=== PATIENT | female | born 1975 | race Caucasian/White ===

== ENCOUNTER 2021-12-20 08:25 | Outpatient (CLI) | payer BC, OTHER | END 2021-12-20 08:26 | disposition home or self-care (01) | LOC: RAD 08:25 | PROVIDERS: ATTEND Internal Medicine Critical Care Medicine | DX: R06.00 Dyspnea, unspecified (principal) | CPT/HCPCS: 71046 ==

== ENCOUNTER 2022-09-01 18:00 | Outpatient (CLI) | payer BC, OTHER | END 2022-09-01 18:01 | disposition home or self-care (01) | LOC: SLEEPLAB 18:00 | PROVIDERS: ATTEND Internal Medicine Critical Care Medicine | DX: G47.33 Obstructive sleep apnea (adult) (pediatric) (principal); R06.83 Snoring; J45.909 Unspecified asthma, uncomplicated; F41.9 Anxiety disorder, unspecified; F32.9 Major depressive disorder, single episode, unspecified; G47.00 Insomnia, unspecified; K21.9 Gastro-esophageal reflux disease without esophagitis; M79.7 Fibromyalgia; R09.02 Hypoxemia | CPT/HCPCS: 95800 ==

== ENCOUNTER 2023-09-15 09:36 | Day surgery (SDC) | payer BC, OTHER ==
[2023-09-13 16:25] VITALS: BMI 41.8
[2023-09-15] MEDS ORDERED: Lidocaine 1% w/Epinephrine 1:100K 20 ML VIAL ONE (10:06)
[2023-09-15] MEDS ORDERED: Lidocaine 1% (PF) 30 ML VIAL ONE (10:07)
== END 2023-09-15 12:10 | disposition home or self-care (01) ==
LOC: SDC 09:36
PROVIDERS: ATTEND Internal Medicine Cardiovascular Disease
PROC: 0JH632Z Insertion of Monitoring Device into Chest Subcutaneous Tissue and Fascia, Percutaneous Approach (ICD-10-PCS; principal; 2023-09-15)
DX: I47.10 Supraventricular tachycardia, unspecified (principal); G47.33 Obstructive sleep apnea (adult) (pediatric); E66.01 Morbid (severe) obesity due to excess calories; F41.9 Anxiety disorder, unspecified; G43.909 Migraine, unspecified, not intractable, without status migrainosus; G89.4 Chronic pain syndrome; E78.5 Hyperlipidemia, unspecified; E03.9 Hypothyroidism, unspecified; K58.9 Irritable bowel syndrome, unspecified; F32.9 Major depressive disorder, single episode, unspecified; F43.10 Post-traumatic stress disorder, unspecified; R00.2 Palpitations; M35.00 Sjogren syndrome, unspecified; Z79.899 Other long term (current) drug therapy; Z88.1 Allergy status to other antibiotic agents; Z79.82 Long term (current) use of aspirin
CPT/HCPCS: 33285; C1764; J2001

== ENCOUNTER 2024-05-30 13:41 | Outpatient (CLI) | payer BC, OTHER | END 2024-05-30 13:42 | disposition home or self-care (01) | LOC: SCSMRI 13:41 | PROVIDERS: ATTEND Psychiatry & Neurology Neurology | DX: G37.9 Demyelinating disease of central nervous system, unspecified (principal); G93.89 Other specified disorders of brain | CPT/HCPCS: 70553; 72156; 76376 ==

== ENCOUNTER 2024-07-17 09:03 | Day surgery (SDC) | payer BC ==
[2024-07-17] MEDS ORDERED: Sodium Bicarbonate 2.5 MEQ/5 ML SDV ONE (10:20)
[2024-07-17 12:27] LABS: CSF Source CSF; Clarity Clear (Clear); Tube # 4
[2024-07-17 12:28] LABS: CSF RBC Count - Manual 0 /cu.mm (None Seen); CSF WBC/NonHematics Count-Man 0 /cu.mm (0-5)
[2024-07-17 12:48] LABS: CSF, Protein 25.6 mg/dL (15-40)
[2024-07-19 23:13] LABS: HSV 1 - DNA, CSF Negative (Negative); HSV 2 - DNA, CSF Negative (Negative)
== END 2024-07-17 12:50 | disposition home or self-care (01) ==
LOC: RAD 09:03
PROVIDERS: ATTEND Psychiatry & Neurology Neurology
PROC: 009U3ZZ Drainage of Spinal Canal, Percutaneous Approach (ICD-10-PCS; principal; 2024-07-17)
DX: G93.2 Benign intracranial hypertension (principal)
CPT/HCPCS: 62270; 82945; 84157; 86592; 86612; 86635; 86698; 87070; 87205; 87529; 89051